=== PATIENT | male | born 1995 | race Caucasian/White ===

== ENCOUNTER 2017-01-11 22:11 | Emergency (ER) | payer OTHER ==
[~2017-01-11] VITALS: Ht 172.7 cm; Wt 112.0 kg
[2017-01-11 23:33] LABS: HEMATOCRIT 44.8 % (38.0-50.0); MCH 29.3 PG (29.0-34.0); MCHC 34.2 G/DL (30.0-36.0); MCV 85.8 FL (86-99); MEAN PLAT.VOLUME 9.2 uM^3 (9.0-12.4); PLATELET COUNT 373 K/uL (156-360); RBC DIS.WIDTH-CV 11.5 % (11.8-14.6); RBC DIS.WIDTH-SD 36.1 % (39-53); RED BLOOD COUNT 5.22 M/uL (4.00-5.50); WHITE BLOOD COUNT 9.2 K/uL (4.1-10.2)
[2017-01-12] LABS: CHLORIDE 104 mEq/L (99-109); POTASSIUM 4.1 mEq/L (3.7-5.4); SODIUM 140 mEq/L (136-147)
[2017-01-12 00:02] LABS: GLUCOSE 104 mg/dL (70-99)
[2017-01-12 00:03] LABS: ANION GAP 13 MEQ/L (2-14)
[2017-01-12 00:06] LABS: GFR ESTIMATE (CALCULATED) > 59 mL/min/
[2017-01-12 00:07] LABS: UREA NITROGEN (BUN) 14 mg/dL (9-23)
[2017-01-12] MEDS ORDERED: VENTOLIN HFA18 GM IH (00:59)
[2017-01-12 01:38] VITALS: BP 131/80
== END 2017-01-12 01:38 | disposition home or self-care (01) ==
LOC: EME 22:11
DX: J45.909 Unspecified asthma, uncomplicated (principal); R00.0 Tachycardia, unspecified; Z77.22 Contact with and (suspected) exposure to environmental tobacco smoke (acute) (chronic)
CPT/HCPCS: 71020; 80048; 85027; 94640; 99281; 99284

== ENCOUNTER 2017-04-07 01:21 | Emergency (ER) | payer OTHER ==
[~2017-04-07] VITALS: Ht 160 cm; Wt 111.4 kg
[~2017-04-07 01:21] MED LIST: VENTOLIN HFA18 GM IH
[2017-04-07 03:43] LABS: HEMATOCRIT 42.2 % (38.0-50.0); MCH 28.3 PG (29.0-34.0); MCHC 34.6 G/DL (30.0-36.0); MCV 81.8 FL (86-99); MEAN PLAT.VOLUME 8.8 uM^3 (9.0-12.4); PLATELET COUNT 366 K/uL (156-360); RBC DIS.WIDTH-CV 11.8 % (11.8-14.6); RBC DIS.WIDTH-SD 34.9 % (39-53); RED BLOOD COUNT 5.16 M/uL (4.00-5.50); WHITE BLOOD COUNT 9.3 K/uL (4.1-10.2)
[2017-04-07 03:51] LABS: CHLORIDE 108 mEq/L (99-109); POTASSIUM 3.9 mEq/L (3.7-5.4); SODIUM 140 mEq/L (136-147)
[2017-04-07 03:53] LABS: GLUCOSE 110 mg/dL (70-99)
[2017-04-07 03:54] LABS: ANION GAP 9 MEQ/L (2-14)
[2017-04-07 03:56] LABS: GFR ESTIMATE (CALCULATED) > 59 mL/min/; SERUM ETHYL ALCOHOL < 10 mg/dL
[2017-04-07 03:57] LABS: UREA NITROGEN (BUN) 11 mg/dL (9-23)
[2017-04-07 04:57] LABS: ADD MIUA? NO; BILIRUBIN NEGATIVE; BLOOD NEGATIVE; COLOR YELLOW ((YELLOW)); GLUCOSE (STRIP) NEGATIVE; KETONES NEGATIVE; LEUKOCYTES NEGATIVE; NITRITE NEGATIVE; PROTEIN (STRIP) 30; SPECIFIC GRAVITY 1.027 (1.000-1.030); UCUL ADDED? NO; UROBILINOGEN 0.2 MG/DL (0.2-1.0)
[2017-04-07 05:12] LABS: AMPHETAMINE NEGATIVE (500 ng/mL); BARBITURATES NEGATIVE (200 ng/mL); BENZODIAZEPINES NEGATIVE (150 ng/mL); COCAINE NEGATIVE (150 ng/mL); INTERNAL CONTROLS VALID? YES; METHADONE NEGATIVE (200 ng/mL); METHAMPHETAMINE NEGATIVE (500 ng/mL); OPIATES (MORPHINE) NEGATIVE (100 ng/mL); OXYCODONE NEGATIVE (100 ng/mL); PHENCYCLIDINE NEGATIVE (25 ng/mL); PROPOXYPHENE NEGATIVE (300 ng/mL); THC CANNABINOIDS NEGATIVE (50 ng/mL); TRICYCLIC ANTIDEPRESSANTS NEGATIVE (300 ng/mL)
[2017-04-07 06:15] LABS: TOTAL BILIRUBIN 0.2 mg/dL (0.0-1.0)
[2017-04-07 06:16] LABS: ALKALINE PHOSPHATASE 60 IU/L (3-129)
[2017-04-07 06:19] LABS: DIRECT BILIRUBIN 0.1 mg/dL (0.0-0.3)
[2017-04-07 06:20] LABS: LIPASE 21 U/L (1.0-51.0)
[2017-04-07 08:58] VITALS: BP 120/68
== END 2017-04-07 08:59 ==
LOC: EME 01:21
PROVIDERS: Emergency Medicine
DX: F32.9 Major depressive disorder, single episode, unspecified (principal); R45.851 Suicidal ideations
CPT/HCPCS: 80048; 80053; 80076; 81003; 83690; 85027; 90837; 99281; 99283; G0480